=== PATIENT | female | born 1960 | race Caucasian/White ===

== ENCOUNTER → 2022-10-10 | Day surgery (SDC) | payer BC ==
[~2022-10-10] MED LIST: ACETAMINOPHEN 1000 MG/100 ML 100 ML IV ONE; B COMPLEX PO; B-6200 MG PO; BERBERINE PO; BI EST PO; BROMELAINS500 MG PO; BUPIVACAINE HCL 0.5% INJ 30 ML VIAL INJ ONE; CALCIUM CITRAT200 MG PO; CARVEDILOL3.125 MG PO; CHOLINE CITRAT650 MG PO; CLINDAMYCIN PHOS 900MG/ 50ML 50 ML IV ONE; DEXAMETHASONE SOD PHOS INJ 4 MG/ML SDV ONE; FENTANYL CITRATE/PF 100MCG/2 ML INJ ONE; INOSITOL650 MG PO; KETOROLAC TROMETHAMINE 30 MG/ML VIAL ONE; LIDOCAINE 2%/ EPINEPHRINE 20ML MDV ONE; LIDOCAINE HCL 2% LOCAL 20 ML VIAL ONE; LIDOCAINE HCL 2% LOCAL INJ 5 ML SDV VIAL INJ ONE; LITHIUM OROTATE PO; MACUHEALTH; MAGNESIUM GLYC100 MG PO; MEPERIDINE HCL INJ 25 MG/ML VIAL ONE; MIDAZOLAM HCL 2 MG/2 ML VIAL ONE; N-ACETYL-L-CYS600 MG PO; OMEGA COMPLETE PO; ONDANSETRON HCL INJ 2MG/ML 2ML 2 MG/ML VIAL ONE; POVIDONE IODINE 0.05% 0.05 % ML PO ONE; PROGESTERONE100 MG PO; PROPOFOL IV EMULSION 10 MG/ML 20 ML VIAL ONE; QUERCETIN500 MG PO; RIBOFLAVIN PO; ROPIVACAINE 0.5% 5 MG/ML 30 ML SDV ONE; SERINE PO; SEVOFLURANE INHAL SOLN 250 ML PEN BTL ONE; TAURINE PO; TRIAMTERENE-HCTZ1 EA PO; UBIQUINOL100 MG PO; VITAMIN C1000 MG PO; VITAMIN D PO; ZINC CHELATE30 MG PO; [UNRECOGNIZED DRUG - OTHER] PO; [UNRECOGNIZED DRUG - OTHER] PO; [UNRECOGNIZED DRUG - OTHER] PO; [UNRECOGNIZED DRUG - OTHER] PO; [UNRECOGNIZED DRUG - OTHER] PO; [UNRECOGNIZED DRUG - OTHER] PO
[2022-10-10 09:00] VITALS: BP 148/90
== END | disposition home or self-care (01) ==
LOC: OR 06:46
PROVIDERS: ATTEND Orthopaedic Surgery
DX: S83.232A Complex tear of medial meniscus, current injury, left knee, initial encounter (principal); S83.282A Other tear of lateral meniscus, current injury, left knee, initial encounter; M22.42 Chondromalacia patellae, left knee; M67.52 Plica syndrome, left knee; M85.80 Other specified disorders of bone density and structure, unspecified site; I10 Essential (primary) hypertension; E78.5 Hyperlipidemia, unspecified; E03.9 Hypothyroidism, unspecified; K76.0 Fatty (change of) liver, not elsewhere classified; X58.XXXA Exposure to other specified factors, initial encounter; Z88.0 Allergy status to penicillin; Z88.8 Allergy status to other drugs, medicaments and biological substances; Z01.810 Encounter for preprocedural cardiovascular examination; Z79.899 Other long term (current) drug therapy; Z86.16 Personal history of COVID-19
CPT/HCPCS: 29882; 93005; J0131; J1100; J1885; J2001 ×3; J2175; J2250; J2405; J2704; J2795; J3010